=== PATIENT | male | born 1995 | race Caucasian/White ===

== ENCOUNTER 2018-06-13 05:51 | Outpatient (CLI) | payer BC ==
[~2018-06-13] VITALS: Ht 193 cm; Wt 103.0 kg
[2018-06-13] MEDS ORDERED: ALPR0.25 PO (10:44)
== END 2018-06-13 10:45 | disposition home or self-care (01) ==
LOC: PREOP 05:51
PROVIDERS: ATTEND Surgery
DX: Z01.818 Encounter for other preprocedural examination (principal)

== ENCOUNTER 2018-06-18 10:27 | Day surgery (SDC) | payer BC ==
[~2018-06-18] VITALS: Ht 193 cm; Wt 103.0 kg
[~2018-06-18 10:27] MED LIST: ALPR0.25 PO
[2018-06-18] MEDS ORDERED: NS IV 500 ML 500 ML ONE (10:37)
[2018-06-18] MEDS ORDERED: NS IV 500 ML 500 ML IV PRN (10:37)
[2018-06-18 10:45] VITALS: BP 132/68
[2018-06-18] MEDS ORDERED: HURRICAINE EXT TUBE (BENZOCAINE) XX PRN (10:45)
[2018-06-18] MEDS ORDERED: MIDAZOLAM 2 MG/2 ML (VERSED) VIAL IVP ONE (10:45)
[2018-06-18] MEDS ORDERED: LIDOCAINE JELLY 2% 6 ML SYRINGE MM PRN (10:45)
[2018-06-18] MEDS ORDERED: fentaNYL INJECTION 100 MCG/2 ML AMP IVP ONE (10:45)
--- NOTE | 2018-06-18 11:31 | Conscious Sedation/ASA ---
Conscious Sedation Pre-Proced Time 11:30 ASA Score 1 For ASA 3 and 4: Consider anesthesia and medical clearance. Also, for patients with a history of failed moderate sedation consider anesthesia. Airway Lungs Heart ASA score ASA 1: a normal healthy patient ASA 2: a patient with a mild systemic disease (mid diabetes, controlled hypertension, obesity ASA 3: a patient with a severe systemic disease that limits activity (angina , COPD, prior Myocardial infarction) ASA 4: a patient with an incapacitating disease that is a constant threat to life (CHF, renal failure) ASA 5: a moribund patient not expected to survive 24 hrs. (ruptured aneurysm) ASA 6: a declared brain- patient whose organs are being harvested. For emergent operations, add the letter E after the classification Mallampati Classification Grade 2 Sedation Plan Analgesia, Amnesia, Plan communicated to team members, Discussed options with patient/fam, Discussed risks with patient/fam The patient is an appropriate candidate to undergo the planned procedure, sedation, and anesthesia. The patient immediately re-assessed prior to indication. SIMÓN GUAJARDO MD Jun 18, 2018 11:31
--- NOTE | 2018-06-18 11:32 | Progress Note-Pre Operative ---
Pre-Operative Progress Note H&P Reviewed The H&P was reviewed, patient examined and no changes noted. Date Seen by Provider: Jun 18, 2018 Time Seen by Provider: 11: Date H&P Reviewed: Jun 18, 2018 Time H&P Reviewed: :30 Pre-Operative Diagnosis: abd pain, vomiting, rectal bleed, wt loss SIMÓN GUAJARDO MD Jun 18, 2018 11:32
[2018-06-18] MEDS ORDERED: PANT40TA2 PO (11:33)
--- NOTE | 2018-06-18 11:34 | Discharge Inst-Surgical ---
D/C Lap Instructions-KIDO New, Converted, or Re-Newed RX: RX on Chart Follow Up Activity as tolerated High Fiber Diet 25g or more per day Avoid Alcohol, Caffeine, Spicy [place] and Acid foods. Drink 64 fluid oz or more of fluids per day. Symptoms to Report: Fever over 101 degree F, Nausea/Vomiting If any problems/questions: Contact your physician or go to Emergency Room SIMÓN GUAJARDO MD Jun 18, 2018 11:34
[2018-06-18] MEDS ORDERED: ONDANSETRON 4 MG/2 ML (SDV) Z0FRAN IV PRN (11:45)
[2018-06-18] MEDS ORDERED: HYDROcodone/APAP 5 MG/325 MG (LORTAB) TAB PO PRN (11:45)
[2018-06-18] MEDS ORDERED: morphine INJ 10 MG/ML 1ML (SYR OR VIAL) IV PRN (11:45)
[2018-06-18] MEDS ORDERED: ACETAMINOPHEN 325 MG TABLET PO PRN (11:45)
[2018-06-18] MEDS ORDERED: MIDAZOLAM 5 MG/5 ML (VERSED) VIAL ONE (13:07)
[2018-06-18] MEDS ORDERED: PROPOFOL INJECTION 50 ML IV ONE ×2 (13:07→13:25)
[2018-06-18 14:30] VITALS: BP 107/57
[2018-06-18] MEDS ORDERED: ONDN4T PO (14:40)
--- NOTE | 2018-06-18 14:45 | Progress Note-Post Operative ---
Post-Operative Progess Note Surgeon (s)/Receiving Team Member (s) Surgeon SIMÓN GUAJARDO MD Receiving Team Member: none Pre-Operative Diagnosis abd pain, vomiting, rectal bleed, wt loss Post-Operative Diagnosis reflux esophagitis(stage 2), small HH(1cm), moderate gastritis. chronic stage 2 int hemorrhoids. Procedure & Operative Findings Date of Procedure 06/18/18 Procedure Performed/Findings EGD with bx. Colonoscopy. Anesthesia Type MAC Estimated Blood Loss Estimated blood loss (mL): minimal Specimens/Packing Specimens Removed ge jxn, antrum SIMÓN GUAJARDO MD Jun 18, 2018 14:45
[2018-06-18 15:00] VITALS: BP 105/52
[2018-06-18 15:05] VITALS: BP 105/52
--- NOTE | 2018-06-19 00:56 | OPERATIVE REPORT ---
DATE OF SERVICE: 06/18/2018 ATTENDING PRIMARY CARE PHYSICIAN: Dr. Burleson. PREOPERATIVE DIAGNOSIS: Abdominal pain, nausea, vomiting, rectal bleed, weight loss. POSTOPERATIVE DIAGNOSES: Reflux esophagitis between stage II and III, small hiatal hernia approximately 1 cm in size, moderate gastritis. Pylorus and duodenum appeared normal with no distal obstructions. Chronic stage II internal hemorrhoids. Remainder of the colon was normal. There were no polyps or mucosal inflammatory changes or any active bleeding sources identified. PROCEDURE: EGD with biopsy, colonoscopy. SURGEON: Simón Guajardo MD. ANESTHESIA: Monitored anesthesia care. ESTIMATED BLOOD LOSS: Minimal. FINDINGS: As above in the postop. DISPOSITION: The patient tolerated the procedure well. INDICATIONS: The patient is a 22-year-old male referred over to us for or a number of different issues. He reports that he has had some left upper abdominal crampy pain; however, has also noticed dark stool starting into bright red blood per rectum. He states that this started occurring six months ago and has been going on an intermittent basis; however, he has noticed more episodes recently. He also does report some nausea and vomiting and has lost approximately 40 pounds unintentionally. He does not report any family history of inflammatory bowel disease. His risk factors are he does drink some caffeinated beverages as well as a binge alcohol approximately three times a week with a beer. DESCRIPTION OF PROCEDURE: The patient was brought to the endoscopy suite, laid in left lateral decubitus position. After adequate IV pain and sedative medications and monitored anesthesia care, the mouthpiece was applied. Endoscope was placed in the mouth, visualizing the pharynx and hypopharyngeal region. Vocal cords, epiglottis and vallecula identified and appeared to be normal. The endoscope was then gently intubated in the esophageal opening and esophagus insufflated. The endoscope was then advanced through the first, second and third portion of esophagus. At the level of the GE junction, a reflux esophagitis between stage II and III identified. There were no ulcerations, strictures or bleeding identified. A biopsy was taken of the GE junction with forceps with visualization of good hemostasis. The endoscope was then advanced in the stomach. The endoscope was retroflexed, visualizing a small hiatal hernia approximately 1 cm in size. There was a moderate severity gastritis; however, no formal ulcerations, polyps or any neoplasms. A biopsy was taken of the stomach antrum to rule out H. pylori with visualization of good hemostasis. The endoscope was then advanced to the pylorus and the first and second portion of the duodenum, which appeared normal and no distal obstructions. The endoscope was then slowly withdrawn while taking a second look and suctioning residual air with no additional findings. The patient tolerated this portion of the procedure well. We will recommend the necessary lifestyle and diet and accommodation including moderation of alcohol as well as a social smoking. We will also start him on Protonix 40 mg daily as well as Zofran p.r.n. for the nausea. This also may be a gallbladder etiology and we will have him follow up to schedule an outpatient ultrasound. Under the same anesthesia, we then proceeded with colonoscopy portion of the procedure. Stage II internal hemorrhoids were identified, which are not actively edematous nor inflamed and no bleeding. Normal sphincter tone was felt and there were no palpable masses. Prostate gland was palpable and appeared normal. The endoscope was then intubated to the anus and rectum gently insufflated. The endoscope was then advanced to the valves of [place] of the rectum with no polyps or any neoplasms identified. The endoscope was then advanced to the sigmoid colon where no diverticulosis identified. The endoscope was then advanced to the remainder of the descending, transverse, ascending colon and the cecum. These segments were normal. There were no mucosal inflammatory changes identified as well as no active bleeding. The endoscope was then slowly withdrawn with taking a second look and suctioning residual air with no additional findings. The patient tolerated the procedure well. We will recommend medical management with a high fiber diet with at least 30 grams of fiber per day as well as significant amounts of water daily to promote consistently soft stools on a regular basis. If he does have recurrent episodes of crampy pain or rectal bleeding, more specifically red blood mixed with mucusy stool, we will have him follow up to repeat endoscopy for a possibility of inflammatory bowel disease; however, our index of suspicion at this time is low. Job ID: [id number] DocumentID: [id number] Dictated Date: 06/18/2018 13:57:57 Technical Laboratory Asst Date: 06/19/2018 00:55:43 Dictated By: SIMÓN GUAJARDO MD
== END 2018-06-18 15:05 | disposition home or self-care (01) ==
LOC: ENDO 10:27
PROVIDERS: ATTEND Surgery
DX: K21.0 Gastro-esophageal reflux disease with esophagitis (principal); K44.9 Diaphragmatic hernia without obstruction or gangrene; K29.50 Unspecified chronic gastritis without bleeding; K64.1 Second degree hemorrhoids; K62.5 Hemorrhage of anus and rectum; F41.9 Anxiety disorder, unspecified; Z79.899 Other long term (current) drug therapy; F17.210 Nicotine dependence, cigarettes, uncomplicated; Z80.0 Family history of malignant neoplasm of digestive organs
CPT/HCPCS: 88305